=== PATIENT | male | born 1985 | race Caucasian/White ===

== ENCOUNTER 2019-02-04 17:57 | Emergency (ER) | payer BC ==
[2019-02-04 18:13] VITALS: BP 154/89; PULSE 86; TEMP 98.5; BMI 34.4
[2019-02-04] MEDS ORDERED: ACETAMINOPHEN 325 MG TABLET (FP) PO ONE (18:52)
[2019-02-04] MEDS ORDERED: ACETAMINOPHEN 325 MG TABLET (FP) ONE (18:55)
--- NOTE | 2019-02-04 19:39 | PDOC ---
History of Present Illness - General Chief Complaint: Pain, Acute Stated Complaint: L ARM PAIN Time Seen by Provider: 02/04/19 18:15 History Source: Patient Exam Limitations: No Limitations Past History - Travel Traveled outside of the country in the last 30 days: No Close contact w/someone who was outside of country & ill: No - Past Medical History Allergies/Adverse Reactions: Allergies Allergy/AdvReac Type Severity Reaction Status Date / Time No Known Allergies Allergy Verified 02/04/19 18:10 Home Medications: Ambulatory Orders Naproxen 500 mg PO BID 10 Days #30 tablet 07/16/17 Cyclobenzaprine HCl [Flexeril -] 10 mg PO HS #10 tablet 02/04/19 Ibuprofen 600 mg PO Q6H #30 tablet 02/04/19 COPD: No - Immunization History Immunization Up to Date: Yes - Psycho Social/Smoking Cessation Hx Smoking History: Never smoked Have you smoked in the past 12 months: No Information on smoking cessation initiated: No Hx Alcohol Use: No Drug/Substance Use Hx: No Substance Use Type: None, Marijuana Review of Systems - Review of Systems Able to Perform ROS?: Yes Comments:: 02/04/19 19:33 CONSTITUTIONAL: Absent: fever, chills, diaphoresis, generalized weakness, malaise, loss of appetite MUSCULOSKELETAL: Present: Left arm pain. Absent: myalgia, arthralgia, joint swelling SKIN: Absent: rash, itching, pallor NEUROLOGIC: Absent: headache, focal weakness or paresthesias, dizziness, unsteady gait, seizure, mental status changes, bladder or bowel incontinence PSYCHIATRIC: Absent: anxiety, depression, suicidal or homicidal ideation, hallucinations. Is the patient limited Tajik proficient: No *Physical Exam - Vital Signs Last Vital Signs Temp Pulse Resp BP Pulse Ox 98.5 F 86 18 154/89 98 02/04/19 18:11 02/04/19 18:11 02/04/19 18:11 02/04/19 18:11 02/04/19 18:11 - Physical Exam 02/04/19 19:33 GENERAL: Well developed, well nourished. Awake and alert. No acute distress. MUSCULOSKELETAL Tenderness palpation over the L biceps tendon, left trapezius. Normal range of motion at all joints. No bony deformities or tenderness. No CVA tenderness. EXTREMITIES: No cyanosis. No clubbing. No edema. No calf tenderness. SKIN: Warm and dry. Normal capillary refill. No rashes. No jaundice. NEUROLOGICAL: Alert, awake, appropriate. Cranial nerves 2-12 intact. No deficits to light touch and temperature in face, upper extremities and lower extremities. No motor deficits in the in face, upper extremities and lower extremities. Normoreflexic in the upper and lower extremities. Normal speech. Toes are down- going bilaterally. Gait is normal without ataxia. PSYCHIATRIC: Cooperative. Good eye contact. Appropriate mood and affect. ED Treatment Course - Medications Given in the ED: ED Medications Discontinued Medications Generic Name Dose Route Start Last Admin Trade Name James PRN Reason Stop Dose Admin Acetaminophen 650 mg 02/04/19 18:52 02/04/19 18:55 Tylenol - PO 02/04/19 18:53 650 mg ONCE ONE Administration Medical Decision Making - Medical Decision Making 02/04/19 19:34 Patient is a 33-year-old male no past medical history presents to the ER today for left shoulder pain starting this afternoon. He states that the pain was sharp and radiated down his left shoulder. He states that the pain started to go into his chest so he became nervous and came to the ER for evaluation. He states at this time the pain has resolved however he does feel some tenderness over his shoulder. He states he worked out yesterday at the gym and primarily focused on his back and his chest. Denies fevers, chills, numbness and tingling and weakness down the affected extremity, difficulty breathing, palpitations and chest pain currently. A/P: Cervical radiculopathy On exam patient is neurologically intact with no focal deficits, PMS intact. No active chest pain. No pain on palpation of the chest. EKG shows a rate of 70 bpm, normal sinus rhythm. No acute ST-T wave changes, normal intervals and axis. Likely a cervical radiculopathy given the shooting pain and recent upper body work out We will treat with Tylenol as patient has not eaten today, will hold ibuprofen unti then Discharge home with Flexeril and ibuprofen and orthopedic follow-up I discussed the physical exam findings, ancillary test results and final diagnoses with the patient. I answered all of the patient's questions. The patient was satisfied with the care received and felt comfortable with the discharge plan and treatment plan. The Patient agrees to follow up with the primary care physician/specialist within 24-72 hours. Return precautions were given. Discharge - Discharge Information Problems reviewed: Yes Clinical Impression/Diagnosis: Cervical radiculopathy Condition: Stable Disposition: HOME - Admission No - Follow up/Referral Referrals: Benton Luther MD [Primary Care Provider] - - Patient Discharge Instructions Patient Printed Discharge Instructions: DI for Cervical Radiculopathy Additional Instructions: Your evaluated for your arm pain today. It is most likely a muscle spasm that is pressing on the brachial plexus (nerve) . Your EKG is normal today Take the Flexeril and Motrin as directed. Do not drink or drive after taking the Flexeril as it may make you drowsy Follow up with you primary care doctor this week Avoid upper body work outs at the gym until your symptoms resolve Return to the ER for any new or worsening symptoms - Post Discharge Activity
--- NOTE | 2019-02-05 17:37 | EKG ---
Test Reason : Blood Pressure : / mmHG Vent. Rate : 070 BPM Atrial Rate : 070 BPM P-R Int : 170 ms QRS Dur : 086 ms QT Int : 360 ms P-R-T Axes : 063 043 019 degrees QTc Int : 388 ms NORMAL SINUS RHYTHM NORMAL ECG WHEN COMPARED WITH ECG OF 24-SEP-2015 18:29, VENT. RATE HAS DECREASED BY 34 BPM QT HAS SHORTENED BASELINE ARTIFACT Confirmed by OPAL NEUMANN, HIMA ([id number]) on 02/05/2019 5:37:33 PM Referred By: Confirmed By:HIMA JOSEPH MD
== END 2019-02-04 19:42 | disposition home or self-care (01) ==
LOC: JERFT 17:57
DX: M54.12 Radiculopathy, cervical region (principal)
CPT/HCPCS: 93005; 93010; 99281-25

== ENCOUNTER 2020-02-21 18:28 | Emergency (ER) | payer BC ==
[2020-02-21 18:54] VITALS: BP 137/80; PULSE 82; TEMP 98.4; BMI 29.3
[2020-02-21] MEDS ORDERED: IBUPROFEN 600 MG TABLET (FP) PO ONE ×2 (20:13→20:17)
== END 2020-02-21 21:04 | disposition home or self-care (01) ==
LOC: JER 18:28 → JERFT 18:28
PROC: 2W3CX1Z Immobilization of Right Lower Arm using Splint (ICD-10-PCS; principal; 2020-02-21)
DX: S62.316A Displaced fracture of base of fifth metacarpal bone, right hand, initial encounter for closed fracture (principal)
CPT/HCPCS: 73130-TC-RT-FY; 99284-25

== ENCOUNTER 2022-12-29 18:14 | Emergency (ER) | payer BC ==
[2022-12-29 18:20] VITALS: BP 127/84; PULSE 94; RESP 20; TEMP 98.3; BMI 30.9
[2022-12-29] MEDS ORDERED: ACETAMINOPHEN 325 MG TABLET (FP) PO ONE (18:56)
[2022-12-29] MEDS ORDERED: ACETAMINOPHEN 325 MG TABLET (FP) ONE (18:57)
[2022-12-29] MEDS ORDERED: LIDOCAINE HCL 2% (50ML VIAL) SQ ONE (19:38)
[2022-12-29] MEDS ORDERED: LIDOCAINE HCL 2% (20ML MULTI-DOSE VIAL) ONE (19:39)
== END 2022-12-29 20:41 | disposition home or self-care (01) ==
LOC: JERFT 18:14 → JER 18:14 → JERFT 20:41
PROC: 2W3KX1Z Immobilization of Left Finger using Splint (ICD-10-PCS; principal; 2022-12-29)
DX: S62.641A Nondisplaced fracture of proximal phalanx of left index finger, initial encounter for closed fracture (principal); M79.645 Pain in left finger(s); R51.9 Headache, unspecified; M25.522 Pain in left elbow; M25.512 Pain in left shoulder; R07.9 Chest pain, unspecified; M79.604 Pain in right leg; M79.605 Pain in left leg; V47.5XXA Car driver injured in collision with fixed or stationary object in traffic accident, initial encounter; Y93.I9 Activity, other involving external motion
CPT/HCPCS: 73140-TC-LT-FY; 99283-25

== ENCOUNTER 2024-01-19 15:42 | Emergency (ER) | payer BC, OTHER ==
[2024-01-19 16:07] VITALS: BP 138/84; PULSE 87; RESP 18; TEMP 97.7; BMI 31.2
[2024-01-19] MEDS ORDERED: MAG HYDROX/AL HYDROX/SIMETH 30 ML UNIT-DOSE CUP ONE (17:03)
[2024-01-19] MEDS ORDERED: FAMOTIDINE 20 MG TABLET ONE (17:03)
[2024-01-19] MEDS: FAMOTIDINE 20 MG TABLET PO ONE (17:05)
[2024-01-19] MEDS: MAG HYDROX/AL HYDROX/SIMETH 30 ML UNIT-DOSE CUP PO ONE (17:05)
[2024-01-19 17:09] LABS: BASO % 0.8 % (0-2.0); EOS % 0.7 % (0-4.5); HEMATOCRIT 47.6 % (35.4-49); HEMOGLOBIN 15.3 GM/dL (11.7-16.9); LYMPH % 31.7 % (8-40); MCH 27.6 pg (25.7-33.7); MCHC 32.1 g/dl (32.0-35.9); MEAN CELL VOLUME 86.1 fl (80-96); MEAN PLT VOLUME 7.6 fl (7.5-11.1); MONO % 6.8 % (3.8-10.2); PLATELET COUNT 359 10^3/uL (134-434); RBC 5.53 M/mm3 (4.00-5.60); RDW 14.5 % (11.9-15.9); WHITE BLOOD COUNT 8.6 K/mm3 (4.0-10.0)
[2024-01-19 17:35] LABS: CHLORIDE 106 mmol/L (98-107); POTASSIUM 3.9 mmol/L (3.5-5.1); SODIUM 139 mmol/L (136-145)
[2024-01-19 17:37] LABS: CALCIUM 9.8 mg/dL (8.5-10.1)
[2024-01-19 17:38] LABS: ALBUMIN 4.4 g/dl (3.4-5.0); ANION GAP 7 mmol/L (4-13); CO2 25 mmol/L (21-32); GLUCOSE,RANDOM 86 mg/dL (74-106)
[2024-01-19 17:41] LABS: SGOT/AST 22 U/L (15-37); SGPT/ALT 52 U/L (13-61)
[2024-01-19 17:43] LABS: TOT PROT 8.4 g/dl (6.4-8.2)
[2024-01-19 17:44] LABS: ALK PHOS 110 U/L (45-117)
== END 2024-01-19 17:25 | disposition left against medical advice (07) ==
LOC: JER 15:42
DX: R07.89 Other chest pain (principal)
CPT/HCPCS: 36415; 71046-TC-FY; 80053; 82550; 82553; 84484; 85025; 93005; 93010; 99285-25